=== PATIENT | male | born 1965 | race Caucasian/White ===

== ENCOUNTER 2020-12-06 07:34 | Emergency (ER) | payer OTHER ==
[~2020-12-06] VITALS: Ht 182.9 cm; Wt 81.7 kg
[~2020-12-06 07:34] MED LIST: IBUPROFEN 800800 M1 PO; MULTIVITAMINS1 EAC7; NORCO 5-325 TA1 EACH PO; PRILOSEC 20 MG20 MG; ROBAXIN 750 MG750 MG PO
[2020-12-06 08:14] LABS: ABSOLUTE BASOPHILS 0.1 thou/uL (0.0-0.2); ABSOLUTE EOSINOPHILS 0.7 thou/uL (0.0-0.7); ABSOLUTE LYMPHOCYTES 1.8 thou/uL (0.8-5.3); ABSOLUTE MONOCYTES 0.7 thou/uL (0.0-1.2); ABSOLUTE NEUTROPHILS 4.8 thou/uL (1.6-8.1); BASOPHILS 1.4 %; EOSINOPHILS 9.2 %; HEMATOCRIT 44.1 % (42.0-52.0); HEMOGLOBIN 14.8 gm/dL (14.0-18.0); MCHC 33.6 g/dL (28.0-37.0); MCV 86.3 fL (80.0-100.0); MONOCYTES 8.3 %; MPV 7.1 fl. (7.2-11.1); NUCLEATED RBCS 0 /100WBC; PLATELET COUNT* 406 thou/uL (150-400); POLYS 59.1 %; WBC 8.1 thou/uL (4.0-11.0)
[2020-12-06 08:55] LABS: CALCIUM 8.9 mg/dL (8.5-10.1); CREATININE 1.1 mg/dL (0.6-1.3)
[2020-12-06 09:04] LABS: ALBUMIN 3.7 g/dL (3.4-5.0); TOTAL BILIRUBIN 0.6 mg/dL (<0.1-1.0); TOTAL PROTEIN 7.3 g/dL (6.4-8.2)
[2020-12-06] MEDS ORDERED: VIBRAMYCIN 100100 MG PO (10:01)
[2020-12-06] MEDS ORDERED: PROAIR HFA8.5 GM INH (10:01)
[2020-12-06] MEDS ORDERED: PREDNISONE 20 M20 M1 PO (10:01)
[2020-12-06 10:15] VITALS: BP 162/106
--- NOTE | 2020-12-07 12:46 | EKG ---
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: : 1965 Requested By: Mendel Morales Order Number: [id number] MD: Trey Daniels Measurements Intervals [place] Rate: 96 P: 63 AL: 143 QRS: 25 QRSD: 92 T: 55 QT: 365 QTc: 462 Interpretive Statements Sinus rhythm Borderline T abnormalities, lateral leads Baseline wander in lead(s) V5 Compared to ECG 05/28/2006 02:25:21 T-wave abnormality now present Sinus bradycardia no longer present Sinus arrhythmia no longer present ST (T wave) deviation no longer present Electronically Signed On 12-07-2020 12:45:52 TECHNICAL SERVICES ANALYST by Trey Daniels [email or web address] <ELECTRONICALLY SIGNED> By: Lisa Daniels MD, [facility] 12/07/20 1245 0747 0747 Lisa Daniels MD, [facility] /EPI
== END 2020-12-06 10:15 | disposition home or self-care (01) ==
LOC: M.ERS 07:34
PROVIDERS: Emergency Medicine
DX: J44.1 Chronic obstructive pulmonary disease with (acute) exacerbation (principal); Z20.828 Contact with and (suspected) exposure to other viral communicable diseases; I10 Essential (primary) hypertension; K21.9 Gastro-esophageal reflux disease without esophagitis; Z98.890 Other specified postprocedural states